=== PATIENT | female | born 1970 | race Caucasian/White ===

== ENCOUNTER 2019-12-19 11:46 | Emergency (ER) | payer BC ==
[~2019-12-19] VITALS: Ht 162.6 cm; Wt 63.0 kg
[2019-12-19] MEDS ORDERED: TRAMADOL 50MG TABLET PO ONE (12:30)
[2019-12-19] MEDS ORDERED: DEXAMETHASONE 4MG TABLET PO ONE (12:30)
[2019-12-19 12:31] VITALS: BP 115/70
== END 2019-12-19 12:34 | disposition home or self-care (01) ==
LOC: ER 11:46
DX: M54.12 Radiculopathy, cervical region (principal); M79.7 Fibromyalgia; Z98.890 Other specified postprocedural states
CPT/HCPCS: 99283; J8540